=== PATIENT | female | born 1985 | race Caucasian/White ===

== ENCOUNTER 2018-06-06 12:52 | Outpatient (CLI) | payer BC, OTHER | END 2018-06-06 21:24 | disposition home or self-care (01) | LOC: SRD 12:52 | DX: M79.642 Pain in left hand (principal) | CPT/HCPCS: 73140-TC ==

== ENCOUNTER 2019-05-23 06:18 | Emergency (ER) | payer OTHER ==
[~2019-05-23] VITALS: Ht 170.2 cm; Wt 86.2 kg
[2019-05-23 06:40] VITALS: BP_SYST 137
[2019-05-23] MEDS ORDERED: MORPHINE 4 MG/ML INJ. SYRINGE IM ONE (07:00)
[2019-05-23 08:08] VITALS: BP_SYST 123
== END 2019-05-23 08:08 | disposition home or self-care (01) ==
LOC: SED 06:18
DX: S90.32XA Contusion of left foot, initial encounter (principal); Z88.1 Allergy status to other antibiotic agents; V03.90XA Pedestrian on foot injured in collision with car, pick-up truck or van, unspecified whether traffic or nontraffic accident, initial encounter; Y92.413 State road as the place of occurrence of the external cause; Y93.89 Activity, other specified; Y99.8 Other external cause status
CPT/HCPCS: 73630; 96372; 99283; J2270

== ENCOUNTER → 2020-07-08 | Outpatient (CLI) | payer OTHER | END | disposition home or self-care (01) | LOC: SRD 16:44 | DX: M25.562 Pain in left knee (principal); M25.561 Pain in right knee ==